=== PATIENT | female | born 1985 | race Caucasian/White ===

== ENCOUNTER 2018-08-05 06:59 | Day surgery (SDC) | payer OTHER ==
--- NOTE | 2018-07-25 19:56 | HP ---
AMENDED REPORT NOW INCLUDES DESIGNATED COSIGNER PREOPERATIVE HISTORY AND PHYSICAL: DATE OF ADMISSION/SURGERY: 08/05/18 [facility] ATTENDING SURGEON: Lillie Montiel MD * (DICTATED BY ALONDRA MARTIN) PROCEDURE: Left hand excision mass, possible nerve graft from left wrist. CHIEF COMPLAINT: Lump in palm of left hand. HISTORY OF PRESENT ILLNESS: This is a 32-year-old female who has had a lump in the palm of her left hand since 2014. She does not recall any injury. It has gradually gotten bigger over time. It bothers her when she bulb planter things. Sometimes she feels a zinging sensation when she touches it. Because the mass has gradually enlarged, she would like to have it removed. She is not complaining of any numbness, but the lump and the occasional zinging sensation is quite bothersome. PAST MEDICAL HISTORY: Unremarkable. PAST SURGICAL HISTORY: Appendectomy. CURRENT MEDICATIONS: 1. Joint supplement. 2. Ibuprofen 200 mg p.r.n. 3. Arti IUD 13.5 mg. ALLERGIES: No known drug allergies. FAMILY MEDICAL HISTORY: Cancer. SOCIAL HISTORY: The patient is employed by [employer]. She denies tobacco use and recreational drug use. She drinks alcohol on occasion. REVIEW OF SYSTEMS: Negative for general, cephalic, cardiovascular, respiratory , GI, , other musculoskeletal, integumentary, endocrine, neurologic, and hematologic symptoms. Infectious Disease: Negative for history of MRSA, hepatitis C, HIV. PHYSICAL EXAMINATION GENERAL: Well-developed, well-nourished 32-year-old female, in no acute distress. VITAL SIGNS: Height 5 feet 9 inches, weight 156 pounds. Pulse rate 60, blood pressure 126/88. HEENT: Normocephalic, atraumatic. Pupils are equal, round, and reactive to light and accommodation. Extraocular movements are intact. Throat is clear. NECK: Supple. No palpable lymph nodes. PULMONARY: Lungs are clear to auscultation bilaterally. No wheezes, rales, or rhonchi. CARDIOVASCULAR: Regular rate and rhythm. S1, S2. No murmurs, rubs, or gallops. No edema. ABDOMEN: Positive bowel sounds. Soft, nontender. NEUROLOGICAL: Alert and oriented x3. Cranial nerves II through XII are intact. Sensation is intact to light touch. MUSCULOSKELETAL: On exam of her left hand, she has a 2 x 1 cm mass on the volar aspect between her 2nd and 3rd metacarpal heads. She has a positive Tinel sign. She can make a fist. She can fully extend her fingers and neurovascular function is intact. IMPRESSION: Soft tissue mass, left hand. PLAN: The patient is scheduled to undergo a left hand excision mass, possible nerve graft from left wrist with Dr. Montiel on 08/05/18. She will return to the office 10 days postop for followup and suture removal. A prescription for Lavelle was e-scribed to the patient's pharmacy for postoperative pain management. ALONDRA MARTIN [id number]/[facility] #: [id number] MTDD
[~2018-08-05 06:59] MED LIST: Buffered Lidocaine 0.9% SYRIN* 5 ML/SYR SYRINGE INTRADERM ONE; Sodium Citrate/Citric Acid* 15 ML UDC ONE; Sodium Citrate/Citric Acid* 15 ML UDC PO ONE
[2018-08-05] MEDS ORDERED: Lidocaine 1% INJ* 10 MG/ML 30 ML SDV ONE (07:15)
[2018-08-05] MEDS ORDERED: ceFAZolin 2 GM PREMIX in ORs 2 GM/50 ML BAG IVPB ONE (07:23)
[2018-08-05] MEDS ORDERED: Propofol* 10 MG/ML 20 ML BTL IV PUSH ONE (08:17)
[2018-08-05] MEDS ORDERED: fentaNYL* 50 MCG/ML 2 ML VIAL (100 MCG VIAL) ONE (08:17)
[2018-08-05] MEDS ORDERED: Lidocaine 2% PF * 5 ML VIAL ONE (08:17)
[2018-08-05] MEDS ORDERED: Naloxone* 0.4 MG/ML 1 ML VIAL IV PRN (08:34)
[2018-08-05 09:01] VITALS: BP 120/81
--- NOTE | 2018-08-06 04:16 | OP ---
DATE OF OPERATION: 08/05/18 [facility] DATE OF : 85 SURGEON: Lillie Montiel MD SWING SAW OPERATOR: ALONDRA Madsen ANESTHESIA: Local MAC. PRE-OP DIAGNOSIS: Left hand mass. POST-OP DIAGNOSIS: Left hand mass. OPERATIVE PROCEDURE: Left hand mass excision. INDICATIONS: [place] is a 32-year-old female with a painful mass that is enlarging in the palm of her left hand in the volar web space between the index and middle fingers. She has a positive Tinel's sign with the mass. She presents for excision of the mass and a possible nerve graft. ESTIMATED BLOOD LOSS: Zero. TOURNIQUET TIME: About 15 minutes. DESCRIPTION OF PROCEDURE: The patient was brought to the operating room and was given a sedation anesthetic and a local infiltration of 10 cc of 1% plain lidocaine in the palm of her left hand. The skin of her left hand and forearm was prepped and draped in the usual sterile fashion. The hand and forearm were exsanguinated and the tourniquet elevated to 250 mmHg. A zigzag incision was made over the mass. We dissected through the subcutaneous tissue. 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 The _ fibers of the nerve were carefully dissected off the mass, which was then easily removed consistent with a schwannoma rather than a tumor in continuity with the nerve. The wound was irrigated and skin edges were reapproximated with 4-0 nylon suture. The wound was dressed with Xeroform, 4x4, Webril, and García wrap. The patient tolerated the procedure well and was brought to the recovery room in good condition. [id number]/[facility] #: [id number] [facility]
--- NOTE | 2018-08-17 05:44 | OP ---
CC: Dr. Montiel OPERATIVE REPORT: DATE OF OPERATION: 08/05/18 DATE OF : 85 ADDENDUM/CORRECTION: "There is a blank in the body of the note. It is just the space, there should n ot be any word there. Please remove the underlines." [id number]/[facility] #: [id number]
== END 2018-08-05 09:40 | disposition home or self-care (01) ==
LOC: OREAST 06:59
PROVIDERS: ATTEND Orthopaedic Surgery
DX: D36.12 Benign neoplasm of peripheral nerves and autonomic nervous system, upper limb, including shoulder (principal); I73.00 Raynaud's syndrome without gangrene
CPT/HCPCS: 81025; 88304; 88341; 88342; 88360; A9270-GY; J0690; J2704; J3010